=== PATIENT | male | born 1990 | race African-American/Black ===

== ENCOUNTER 2021-06-08 14:02 | Emergency (ER) | payer OTHER ==
[~2021-06-08] VITALS: Ht 170.2 cm; Wt 74.8 kg
== END 2021-06-08 16:39 | disposition home or self-care (01) ==
LOC: ED 14:02
DX: S90.02XA Contusion of left ankle, initial encounter (principal); S80.02XA Contusion of left knee, initial encounter; S70.02XA Contusion of left hip, initial encounter; S70.01XA Contusion of right hip, initial encounter; V89.2XXA Person injured in unspecified motor-vehicle accident, traffic, initial encounter
CPT/HCPCS: 72170; 73560; 73610; 99284-25